=== PATIENT | male | born 1955 | race Caucasian/White ===

== ENCOUNTER 2020-11-07 05:35 | Outpatient (CLI) | payer MEDICARE ==
[~2020-11-07] VITALS: Ht 190.5 cm; Wt 92.1 kg
== END 2020-11-10 15:31 | disposition home or self-care (01) ==
LOC: PREOP 05:35
PROVIDERS: ATTEND Surgery
DX: Z01.818 Encounter for other preprocedural examination (principal)

== ENCOUNTER 2020-11-14 08:50 | Day surgery (SDC) | payer MEDICARE ==
[~2020-11-14] VITALS: Ht 191 cm; Wt 92.0 kg
[2020-11-14] MEDS ORDERED: LACTATED RINGERS 1,000 ML IV STA (08:51)
[2020-11-14 09:10] VITALS: BP 142/86
[2020-11-14] MEDS ORDERED: proPOfol 200 MG/20 ML (DIPRIVAN) VIAL IV ONE ×2 (10:45→11:16)
[2020-11-14] MEDS ORDERED: MIDAZOLAM 2 MG/2 ML (VERSED) VIAL ONE (10:48)
[2020-11-14 11:30] VITALS: BP 137/71
[2020-11-14 11:35] VITALS: BP 135/75
--- NOTE | 2020-11-14 11:37 | Progress Note-Post Operative ---
Post-Operative Progess Note Surgeon (s)/Swatch Clerk (s) Surgeon SAHRA VERDE DO Swatch Clerk: na Pre-Operative Diagnosis screening colonoscopy Post-Operative Diagnosis colon polyps, diverticulosis Procedure & Operative Findings Date of Procedure 11/14/20 Procedure Performed/Findings colonoscopy c hot bx polypectomy and snare polypectomy Anesthesia Type per dipper clock and watch hands Estimated Blood Loss Estimated blood loss (mL): scant Specimens/Packing Specimens Removed cecal polyp, rectal polyp SAHRA VEDRE DO Nov 14, 2020 11:37
--- NOTE | 2020-11-14 11:39 | Discharge Inst-Simple/Standard ---
Discharge Inst-Standard Patient Instructions/Follow Up Plan of Care/Instructions/FU: 2 week Guido Activity as Tolerated: Yes Discharge Diet: Regular Diet (high fiber) SAHRA VERDE DO Nov 14, 2020 11:39
[2020-11-14 11:40] VITALS: BP_SYST 141; BP_SYST 142; BP_DIAS 64; BP_DIAS 67
[2020-11-14 11:59] VITALS: BP 161/87
[2020-11-14 12:03] VITALS: BP 161/87
--- NOTE | 2020-11-14 13:41 | Anesthesia-General Post-Op ---
MAC Patient Condition Mental Status/LOC: Same as Preop Cardiovascular: Satisfactory Nausea/Vomiting: Absent Respiratory: Satisfactory Pain: Controlled Complications: Absent Post Op Complications Complications None Follow Up Care/Instructions Patient Instructions None needed. Anesthesiology Discharge Order Discharge Order Patient is doing well, no complaints, stable vital signs, no apparent adverse anesthesia problems. No complications reported per nursing. CARLOS ROME CRNA Nov 14, 2020 13:41
--- NOTE | 2020-11-14 20:06 | OPERATIVE REPORT ---
DATE OF SERVICE: 11/14/2020 PREOPERATIVE DIAGNOSIS: Screening colonoscopy. POSTOPERATIVE DIAGNOSES: Colon polyps and diverticulosis. PROCEDURE: Colonoscopy with hot biopsy polypectomy x1 and snare polypectomy x1. SURGEON: Sahra Lora DO ANESTHESIA: Per PERIPATOLOGIST. ESTIMATED BLOOD LOSS: None. COMPLICATIONS: None. INDICATIONS: The patient is a 65-year-old male needing screening colonoscopy. He understands risks and benefits of procedure and wished to proceed with procedure. Consent was signed in the chart. DESCRIPTION OF PROCEDURE: The patient was taken to the endoscopy suite, placed in left lateral recumbent position. Timeout was performed. Digital rectal exam was performed. No palpable polyps, masses or ulcerations. Scope was inserted in the rectum and advanced all the way to cecum without difficulty. Prep was adequate. Small polyp in the cecum was present, which hot biopsy polypectomy was performed. Scope was then slowly retracted back. No polyps, masses or ulcerations within the ascending, transverse, descending and sigmoid colon. In the sigmoid colon, a moderate amount of diverticulosis and a very tight turn. Scope was then slowly retracted back into the rectum where another or larger polyp was present in the rectum. Snare polypectomy was performed. This was obtained for specimen. Scope was retroflexed noting some internal hemorrhoids. No other pathology. Scope was returned to its normal position, slowly withdrawn until completely removed. The patient tolerated procedure well without any complications, taken to recovery room in stable condition. RECOMMENDATIONS: The patient will need repeat colonoscopy in 3 to 5 years. Any issues before that be seen at that time. Recommend high-fiber diet due to diverticulosis. Job ID: [id number] DocumentID: [id number] Dictated Date: 11/14/2020 11:44:13 Vending Machine Refiller Date: 11/14/2020 15:56:10 Dictated By: SAHRA LORA DO
== END 2020-11-14 12:30 | disposition home or self-care (01) ==
LOC: ENDO 08:50
PROVIDERS: ATTEND Surgery
DX: Z12.11 Encounter for screening for malignant neoplasm of colon (principal); D12.0 Benign neoplasm of cecum; D12.8 Benign neoplasm of rectum; C44.92 Squamous cell carcinoma of skin, unspecified; K57.30 Diverticulosis of large intestine without perforation or abscess without bleeding; L81.9 Disorder of pigmentation, unspecified; Z79.899 Other long term (current) drug therapy